=== PATIENT | male | born 1980 | race Two or more races ===

== ENCOUNTER 2021-07-11 00:15 | Emergency (ER) | payer SELFPAY ==
[~2021-07-11] VITALS: Ht 185.4 cm; Wt 73.9 kg
--- NOTE | 2021-07-11 01:35 | NUR ---
PATIENT LEFT WITHOUT BEING SEEN BY MD. TOMASA SIGNED. EXPLAINED IMPORTANCE OF BEING TREATED. PT STILL REFUSED TO STAY AND BE SEEN.
[2021-07-11 01:37] VITALS: BP 120/86
== END 2021-07-11 01:38 | disposition left against medical advice (07) ==
LOC: ER 00:17
DX: Z53.21 Procedure and treatment not carried out due to patient leaving prior to being seen by health care provider (principal); R06.02 Shortness of breath